=== PATIENT | male | born 1940 | race Caucasian/White ===

== ENCOUNTER → 2019-12-18 11:05 | Outpatient (CLI) | payer MEDICARE, OTHER, SELFPAY ==
[2019-12-19 13:24] LABS: COVID19 Sendout Not Detected (Not Detect)
== END ==
PROVIDERS: Visit Provider Nurse Practitioner
DX: Z11.59 Encounter for screening for other viral diseases (principal)
CPT/HCPCS: 87635

== ENCOUNTER 2019-12-21 10:06 | Day surgery (SDC) | payer MEDICARE, OTHER, SELFPAY ==
--- NOTE | 2019-12-21 | PATH_ITS ---
[facility] Accession Number: [id number] . 01 Material submitted: . PART A: gastrointestinal site - ANTRAL STOMACH NODUAL BIOPSY PART B: colon - CECAL POLYP BIOPSY PART C: colon - ASCENDING POLYP BIOPSY PART D: colon - TRANSVERSE COLON POLYP BIOPSY . 02 Diagnosis: A. Antral Stomach Nodule, Biopsy: Antral mucosa with reactive gastropathy. No evidence of Helicobacter on H/E stain. Negative for intestinal metaplasia. Negative for dysplasia and malignancy. . B. Cecum, Polyp, Biopsy: Tubular adenoma. . C. Ascending Colon, Polyp, Biopsy: Tubular adenoma. . D. Transverse Colon, Polyp, Biopsy: Inflammatory polyp. MRV 12/23/2019 1141 Local . 02 Electronically signed: . Ashley Coto MD, Pathologist NPI- [id number] . 01 Gross description: . A. Received in formalin, labeled antral stomach nodule biopsy, and consists of two lowery-pink fragments of soft tissue measuring 0.2 x 0.2 x 0.2 cm in aggregate. The specimen is entirely submitted in cassette A1. B. Received in formalin, labeled cecal polyp, and consists of multiple lowery-pink fragments of soft tissue measuring 2.5 x 1.5 x 0.5 cm in aggregate. The specimen is entirely submitted in cassette B1. C. Received in formalin, labeled ascending colon polyps and consists of two lowery-pink polyps measuring 0.5 and 0.8 cm. The specimen is entirely submitted in cassette submitted in cassette C1. D. Received in formalin, labeled transverse polyp, and consists of a 0.6 x 0.5 x 0.4 cm lowery pink-polyp. The base is inked blue, the specimen is bisected and entirely submitted in cassette D1. (EA/[id number]) /MRV 12/22/2019 1242 Local . 02 Pathologist provided ICD-10: D12.0, D12.2 . 02 CPT . 133330, 735078, 287847, 372062 Performed at: 01 [facility] [address] [address] [address], [place], [place] [id number] MD Jorje Madrigal MD Phone: [phone] Performed at: 02 [facility] [id number] [address] [place] [id number] MD Ashley Coto MD Phone: [phone]
[2019-12-21 12:06] VITALS: BP 187/98; PULSE 66; RESP 16; TEMP 36.9; O2SAT 98; BMI 35.5
--- NOTE | 2019-12-21 13:57 | PM.PREOP ---
Pre-operative Note COVID-19 COVID-19 status: Negative Interval Note History & Physical reviewed/Exam performed by Physician: Yes Changes to H&P: No ASA Class (for procedural sedation): III
--- NOTE | 2019-12-21 14:00 | P.HP_ITS ---
History of Present Illness History of Present Illness Chief complaint: [facility] Patient History Family & Social History Social History: household members spouse Tobacco & Substance use: Smoking Status Former smoker alcohol intake never Substance Use Type does not use Meds Home Medications and Allergies Home Medications Medication Instructions Recorded Confirmed Type Novolin 70-30 FlexPen U-100 17 unit SUBCUT DAILY 12/21/19 12/21/19 History allopurinol 100 mg PO DAILY 12/21/19 12/21/19 History atenolol 25 mg PO DAILY 12/21/19 12/21/19 History metformin 1,000 mg PO BID 12/21/19 12/21/19 History Allergies Allergy/AdvReac Type Severity Reaction Status Date / Time No Known Drug Allergies Allergy Verified 12/21/19 12:01 Review of Systems Review of Systems ROS: Yes All systems reviewed with the patient and are negative except as otherwise documented Exam Vital Signs (past 8 hours): Oxygen Delivery Method Room Air Narrative Exam Narrative: Awake alert and oriented x3, pupils equal round reactive to light, oropharynx clear, heart regular rate and rhythm, lungs clear to auscultation bilaterally, abdomen nontender and nondistended, extremities without edema, no gross neurologic deficits noted Assessment & Plan Assessment & Plan narrative: Iron deficiency anemia for EGD and colonoscopy COVID-19 COVID-19 status: Negative Result date/Date tested (Pos, Neg/Pending): 12/21/19
[2019-12-21] MEDS: fentaNYL 250 MCG/5 ML INJ IV (14:01)
--- NOTE | 2019-12-21 14:10 | PM.OP.ENDO ---
Operative Date/Time/Diagnoses Date of procedure: 12/21/19 Procedure & Clinicians Study performed: EGD with biopsy Moderate conscious sedation was administered by the endoscopy nurse and supervised by the endoscopist. The following parameters were monitored: Oxygen saturation, heart rate, blood pressure, and response to care. 4 mg midazolam and 100 mcg fentanyl given Same procedure as scheduled: Yes Indications: Iron deficiency anemia Procedure Notes Procedure in detail: Prior to the procedure, history and physical was performed, and patient medications and allergies were reviewed. Preprocedure nursing history and assessment was reviewed. Patient identification and proposed procedure were verified by the physician and nurse in the procedure room. The physical status of the patient was reassessed after the procedure. After informed consent was obtained including risks, benefits, and alternatives, the scope was passed under direct vision. Throughout the procedure, the patient's blood pressure, pulse, and oxygen saturations were monitored continuously. The upper endoscope was introduced through the mouth and advanced to the 2nd portion of the duodenum. Retroflexion was performed in the stomach. The patient tolerated the procedure well. The entire examined esophagus was normal appearing. The Z-line was located at 44 cm and was regular. In the pre-pyloric region of the antrum, there was a 1.5 cm area of erythema and mild nodularity. This was biopsied. The remainder of the stomach was normal appearing. The duodenum was tortuous beyond the sweep and difficult to fully visualize endoscopically. No grossly abnormal lesions were noted. Impression: Normal appearing esophagus and Z-line Erythema and nodularity at the pre-pyloric stomach. Biopsied Tortuous but otherwise normal appearing duodenum Complications: other (EBL minimal. No complications) Post-procedure Plan for aftercare: Follow-up pathology results Proceed with colonoscopy today. Additional recommendations to follow.
[2019-12-21] MEDS: MIDAZOLAM 5 MG/5 ML VIAL IV (14:15)
--- NOTE | 2019-12-21 15:00 | PM.OP.ENDO ---
Operative Date/Time/Diagnoses Date of procedure: 12/21/19 Procedure & Clinicians Study performed: Colonoscopy with snare polypectomy and hemoclip placement Moderate conscious sedation was administered by the endoscopy nurse and supervised by the endoscopist. The following parameters were monitored: Oxygen saturation, heart rate, blood pressure, and response to care. 1 mg midazolam given during colonoscopy plus medications given during EGD. Same procedure as scheduled: Yes Indications: Iron deficiency anemia Procedure Notes Procedure in detail: Prior to the procedure, history and physical was performed, and patient medications and allergies were reviewed. Preprocedure nursing history and assessment was reviewed. Patient identification and proposed procedure were verified by the physician and nurse in the procedure room. The physical status of the patient was reassessed after the procedure. After informed consent was obtained including risks, benefits, and alternatives, the scope was passed under direct vision. Throughout the procedure, the patient's blood pressure, pulse, and oxygen saturations were monitored continuously. The colonoscope was introduced through the anus and advanced to the cecum as identified by the appendiceal orifice and ileocecal valve. The patient tolerated the procedure well. Bowel prep was deemed adequate to detect polyps greater than 5 mm. Digital rectal examination and perianal examination unremarkable. Retroflexion in the rectum revealed grade 1 internal hemorrhoids There was liquid stool throughout the entire colon. This was lavaged resulting in adequate visualization. Numerous medium mouth sigmoid and descending colon diverticula noted In the cecum, a 3 x 1 cm sessile, lobulated polyp was noted. This was completely resected in piecemeal using a cold snare and cold biopsy forceps. Tissue was retrieved. The polypectomy defect was partially closed using a total of 4 hemoclips in a zipper like fashion. A 7 mm sessile polyp was removed from the ascending colon with a cold snare and retrieved A 6 mm semi pedunculated polyp in the distal transverse colon was removed using a cold snare. Bleeding after polypectomy prompted placement of 2 hemoclips and tip of the snare cautery to treat residual bleeding and scant polyp tissue. Impression: Internal hemorrhoids Left-sided colonic diverticulosis 3 x 1 cm polyp in the cecum removed. Polypectomy defect closed with 4 hemoclips to prevent bleeding 6 mm polyp in the distal transverse colon removed. Two hemoclips placed to prevent bleeding. 7 mm polyp in the ascending colon removed Sedation minutes: 60 Complications: other (EBL minimal. No complications) Post-procedure Plan for aftercare: Follow-up pathology results Resume home medications High fiber diet Follow-up in GI clinic as previously recommended Patient has a contact number available for emergencies. The signs and symptoms of potential delayed complications were discussed with the patient. Return to normal activities tomorrow. Written discharge instructions were provided to the patient. Discharge home with escort
[2019-12-21 15:09] VITALS: BP 175/99; PULSE 62; RESP 16; TEMP 36.3; O2SAT 95
[2019-12-21 15:14] VITALS: BP 167/100; PULSE 65; RESP 16; O2SAT 96
[2019-12-21 15:19] VITALS: BP 178/104; PULSE 79; RESP 18; O2SAT 96
[2019-12-21] MEDS: LACTATED RINGERS 1,000 ML 125 ML IV ×2 (15:23→15:24)
[2019-12-21 15:25] VITALS: BP 161/96; PULSE 63; RESP 16; O2SAT 95
== END 2019-12-21 15:46 | disposition home or self-care (01) ==
PROVIDERS: PCP Family Medicine; Referring Provider Family Medicine; Visit Provider Internal Medicine
PROC: 0DJ08ZZ Inspection of Upper Intestinal Tract, Via Natural or Artificial Opening Endoscopic (ICD-10-PCS; CPT 43235; principal; 2019-12-21 12:30)
PROC: 0DJD8ZZ Inspection of Lower Intestinal Tract, Via Natural or Artificial Opening Endoscopic (ICD-10-PCS; CPT 45378; 2019-12-21 12:30)
DX: D50.9 Iron deficiency anemia, unspecified (principal); I10 Essential (primary) hypertension; E78.00 Pure hypercholesterolemia, unspecified; E11.9 Type 2 diabetes mellitus without complications; I51.9 Heart disease, unspecified; Z85.72 Personal history of non-Hodgkin lymphomas; Z79.84 Long term (current) use of oral hypoglycemic drugs; K31.9 Disease of stomach and duodenum, unspecified; K57.30 Diverticulosis of large intestine without perforation or abscess without bleeding; D12.2 Benign neoplasm of ascending colon; D12.0 Benign neoplasm of cecum
CPT/HCPCS: 45385; 43239; 45382; J2250; J3010

== ENCOUNTER → 2020-07-02 11:07 | Outpatient (CLI) | payer MEDICARE, OTHER, SELFPAY ==
[2020-07-02 12:49] LABS: COVID19 -Nasal RAPID Negative (Negative)
== END ==
PROVIDERS: PCP Family Medicine; Visit Provider Physician Assistant
DX: Z20.822 Contact with and (suspected) exposure to COVID-19 (principal)
CPT/HCPCS: 87635; C9803

== ENCOUNTER 2020-07-04 08:48 | Day surgery (SDC) | payer MEDICARE, OTHER, SELFPAY ==
--- NOTE | 2020-07-04 | PATH_ITS ---
[facility] Accession Number: [id number] . 01 Material submitted: . colon - TRANSVERSE COLON POLYP . 02 Diagnosis: Transverse Colon Polyp, Biopsy: Tubular adenoma. MRV 07/09/2020 1245 Local . 02 Electronically signed: . Valeriano Delgado MD, PhD, Pathologist NPI- [id number] . 01 Gross description: . TRANSVERSE COLON POLYP: Received in formalin are 2 fragment(s) of lowery, soft tissue measuring 0.3 x 0.2 x 0.2 cm to 0.4 x 0.2 x 0.2 cm submitted entirely in 1 cassette(s) /KEVAN 07/05/2020 2301 Local . 02 Pathologist provided ICD-10: D12.3 . 02 CPT . 365782 Performed at: 01 [facility] [address] [id number] MD Jorje Madrigal MD Phone: [phone] Performed at: [address] [facility] [address] [place], [place] [id number] MD Ashley Coto MD Phone: [phone]
[2020-07-04 09:29] VITALS: BP 194/112; PULSE 81; RESP 16; TEMP 36.2; O2SAT 96; BMI 31.5
[2020-07-04] MEDS: SODIUM CHLORIDE 0.9% 1,000 ML 84 ML IV (09:39)
--- NOTE | 2020-07-04 10:43 | PM.HP.1 ---
History of Present Illness History of Present Illness Date Patient Seen: 07/04/20 Chief complaint: SDC Narrative: History of colonoscopy 6 months ago with very large cecal polyp completely removed endoscopically and clips placed. Follow-up to ensure complete removal. Patient History Medical History (Updated 07/03/20 @ 15:23 by Tahmina Charles, RN) Diabetes HTN (hypertension) Hypercholesteremia Iron deficiency anemia Kidney stones Lymphoma Lymphoma in remission Surgical History (Updated 07/03/20 @ 15:20 by Tahmina Charles RN) History of heart artery stent (~2004) Hx of cholecystectomy Family & Social History Social History: household members spouse Tobacco & Substance use: Smoking Status Former smoker alcohol intake never Substance Use Type does not use Meds Home Medications and Allergies Home Medications Medication Instructions Recorded Confirmed Type Novolin 70-30 FlexPen U-100 17 unit SUBCUT DAILY 12/21/19 07/04/20 History allopurinol 100 mg PO DAILY 12/21/19 07/04/20 History atenolol 25 mg PO DAILY 12/21/19 07/04/20 History metformin 1,000 mg PO BID 12/21/19 07/04/20 History losartan 100 mg PO DAILY 07/03/20 07/04/20 History oxybutynin chloride 5 mg PO DAILY 07/03/20 07/04/20 History simvastatin 40 mg PO DAILY 07/03/20 07/04/20 History Allergies Allergy/AdvReac Type Severity Reaction Status Date / Time No Known Drug Allergies Allergy Verified 07/04/20 09:25 Exam Vital Signs (past 8 hours): - 07/04/20 09:29 Temperature 97.1 F L Pulse Rate 81 Respiratory Rate 16 Blood Pressure 194/112 H Pulse Oximetry 96 Oxygen Delivery Method Room Air Narrative Exam Narrative: Oropharynx free of lesions Chest clear to auscultation percussion Cardiac exam reveals no S3 or murmur Assessment & Plan Assessment & Plan narrative: History of large tubular adenoma of the cecum endoscopically removed. Need for follow-up colonoscopy to ensure complete removal. Risks, benefits, alternatives have been explained.
[2020-07-04] MEDS: fentaNYL 250 MCG/5 ML INJ IV (10:44)
--- NOTE | 2020-07-04 10:44 | P.OP.ENDO_ITS ---
Operative Date/Time/Diagnoses Date of procedure: 07/04/20 Pre-op diagnosis: See indication and findings Procedure & Clinicians Study performed: Colonoscopy Same procedure as scheduled: Yes Indications: Large tubular adenoma of the cecum removed endoscopically via endoscopic mucosal resection. Clips placed. Follow-up colonoscopy in the short term to ensure complete removal. Surgeon: Taylor Michel Procedure Notes Procedure in detail: After informed consent was obtained patient was placed in left lateral decubitus position. The video colonoscope was introduced the rectum slowly advanced to cecum. Preparation was actually fairly poor but I elected to continue as this is primarily evaluate the cecum.. On slow withdrawal mucosa was carefully examined. The scope was removed. The patient tolerated procedure well. Blood loss none Complications none Sedation Total sedation time 20 minutes Fentanyl 100 micro g Versed 4 mg IV titration Findings 1. Relatively poor prep with mostly liquid stool throughout that is not clear and some more solid stool distally. 2. Extensive sigmoid and left-sided diverticulosis 3. 6 mm polyp in the transverse colon Jumbo biopsy removed x2 4. Excellent evaluation obtained of the cecum. No residual clips present. No residual polyp present. Will follow up on the pathology results and decide on appropriate interval in 3- 5 years. At the time of next colonoscopy extra prep will need to be given. He did not drink all of his prep for the procedure today.
[2020-07-04] MEDS: MIDAZOLAM 5 MG/5 ML VIAL IV (10:48)
[2020-07-04 11:09] VITALS: BP 158/86; PULSE 66; RESP 14; TEMP 36.6; O2SAT 92
[2020-07-04 11:14] VITALS: BP 146/84; PULSE 66; RESP 12; O2SAT 92
[2020-07-04 11:19] VITALS: BP 160/76; PULSE 66; RESP 16; O2SAT 94
[2020-07-04 11:21] VITALS: BP 153/80; PULSE 62; RESP 14; TEMP 36.4; O2SAT 96
[2020-07-04 11:30] VITALS: BP 157/77; PULSE 60; RESP 12; TEMP 37.4; O2SAT 95
== END 2020-07-04 11:42 | disposition home or self-care (01) ==
PROVIDERS: PCP Family Medicine; Referring Provider Internal Medicine Gastroenterology; Visit Provider Internal Medicine Gastroenterology
PROC: 0DJD8ZZ Inspection of Lower Intestinal Tract, Via Natural or Artificial Opening Endoscopic (ICD-10-PCS; CPT 45378; principal; 2020-07-04 11:30)
DX: D12.3 Benign neoplasm of transverse colon (principal); K57.30 Diverticulosis of large intestine without perforation or abscess without bleeding
CPT/HCPCS: 45380; J2250; J3010